=== PATIENT | male | born 1945 | race Asian ===

== ENCOUNTER 2016-12-17 07:56 | Outpatient (CLI) | payer OTHER ==
[2016-12-17 13:20] LABS: BASOPHILS % (AUTO) 0.5 %; EOSINOPHILS # (AUTO) 0.4 10^3/uL (0.0-0.7); EOSINOPHILS % (AUTO) 5.8 %; HCT - HEMATOCRIT 45.1 % (42.0-52.0); HGB - HEMOGLOBIN 14.9 g/dL (14.0-18.0); LYMPHOCYTES # (AUTO) 2.4 10^3/uL (1.5-3.5); LYMPHOCYTES % (AUTO) 31.5 %; MEAN CORPUSCULAR HEMOGLOBIN 30.6 pg (27.0-31.0); MEAN CORPUSCULAR HGB CONC 33.2 g/dL (32.0-36.0); MEAN CORPUSCULAR VOLUME 92.3 fL (80.0-94.0); MEAN PLATELET VOLUME 7.4 fL (7.4-11.4); MONOCYTES # (AUTO) 0.6 10^3/uL (0.0-1.0); MONOCYTES % (AUTO) 7.5 %; NEUTROPHILS # (AUTO) 4.1 10^3/uL (1.5-6.6); NEUTROPHILS % (AUTO) 54.7 %; RED BLOOD COUNT 4.88 10^6/uL (4.70-6.10); RED CELL DISTRIBUTION WIDTH 13.6 % (12.0-15.0); UNCORRECTED WHITE BLOOD COUNT 7.5 x10^3/uL; WHITE BLOOD COUNT 7.5 x10^3/uL (4.8-10.8)
[2016-12-17 14:16] LABS: ALBUMIN/GLOBULIN RATIO 1.2 (1.0-2.2); BILIRUBIN,TOTAL 0.6 mg/dL (0.2-1.0); BUN - BLOOD UREA NITROGEN 17 mg/dL (6-20); CALCIUM 9.1 mg/dL (8.5-10.3); CARBON DIOXIDE - CO2 25 mmol/L (21-32); CHLORIDE 99 mmol/L (101-111); CHOL/HDL RATIO 3.7 (<5.0); CHOLESTEROL 227 mg/dL; CREATININE 0.8 mg/dL (0.6-1.2); GFR - MDRD 96 (>89); GLUCOSE 104 mg/dL (70-100); HDL CHOLESTEROL 61 mg/dL; LDL/HDL RATIO 2.5 (<3.6); POTASSIUM 3.9 mmol/L (3.5-5.0); SODIUM 133 mmol/L (135-145); TOTAL PROTEIN 7.6 g/dL (6.7-8.2); TRIGLYCERIDES 63 mg/dL; VLDL CHOLESTEROL 13 mg/dL
[2016-12-17 14:22] LABS: HEMOGLOBIN A1C 0.61 g/dL
== END 2016-12-17 07:57 | disposition home or self-care (01) ==
LOC: LAB.WCP 07:56
PROVIDERS: ATTEND Family Medicine
DX: E78.5 Hyperlipidemia, unspecified (principal); I10 Essential (primary) hypertension; R73.01 Impaired fasting glucose; Z12.5 Encounter for screening for malignant neoplasm of prostate; I48.0 Paroxysmal atrial fibrillation; F41.9 Anxiety disorder, unspecified
CPT/HCPCS: 36415; 80053; 80061; 83036; 84153; 84443; 85025

== ENCOUNTER 2021-08-31 14:19 | Outpatient (CLI) | payer OTHER ==
--- NOTE | 2021-08-31 15:58 | XRAY Report ---
PROCEDURE: Shoulder 2 View RT INDICATIONS: Pain in right shoulder TECHNIQUE: 2 views of the shoulder were acquired. COMPARISON: None. FINDINGS: Bones: No fractures or dislocations. No suspicious bony lesions. Visualized ribs appear intact. Soft tissues: No suspicious soft tissue calcifications. Right lung apex is clear IMPRESSION: No fracture or dislocation Reviewed by: Kishan Torres MD on 08/31/2021 2:57 PM [facility] Approved by: Kishan Torres MD on 08/31/2021 2:57 PM [facility] Station ID: [id number]
== END 2021-08-31 14:20 | disposition home or self-care (01) ==
LOC: DI.N 14:19
PROVIDERS: ATTEND Family Medicine
DX: M25.511 Pain in right shoulder (principal)

== ENCOUNTER 2021-09-30 20:04 | Emergency (ER) | payer OTHER ==
[2021-09-30] MEDS ORDERED: TETANUS/DIPHTHERIA/PERTUSSIS 0.5 ML SYRINGE IM ONE (20:29)
[2021-09-30] MEDS ORDERED: TRANEXAMIC ACID 1,000 MG/10 ML VIAL NAS STA (20:38)
[2021-09-30] MEDS ORDERED: LIDOCAINE 1%-EPI 1:100000 20 ML MDV SUBQ STA (20:51)
--- NOTE | 2021-09-30 20:51 | ED Physician Documentation ---
History of Present Illness - Stated complaint Stated Complaint: R LOWER LEG WOUND - Chief complaint Chief Complaint: Ext Problem - Additonal information Additional information: 76-year-old male presents emergency department for evaluation of right lower leg varicosity bleeding. He has extensive varicose veins on both his legs. He had just gotten out of the shower felt an itch and scratched his leg when he looked down he noticed that he had blood squirting out of the leg. He became concerned wrapped a towel around his leg and thus came to the ER. No history of similar in the past. He is not anticoagulated. No chest pain shortness of air lapse in consciousness Review of Systems Constitutional: denies: Fever, Chills Throat: reports: Reviewed and negative Cardiac: reports: Reviewed and negative Respiratory: reports: Reviewed and negative GI: reports: Reviewed and negative : reports: Reviewed and negative Skin: reports: Other (Bleeding varicose vein right lower anterior calf) PD PAST MEDICAL HISTORY - Past Medical History Cardiovascular: Hypertension, High cholesterol Respiratory: Asthma - Past Surgical History Past Surgical History: No - Present Medications Home Medications: Ambulatory Orders Medication Instructions Recorded Confirmed Fluticasone 44 Mcg [Flovent] 2 puffs INH DAILY 07/11/13 09/30/21 Losartan [Cozaar] 50 mg PO DAILY 07/11/13 09/30/21 Meloxicam [Mobic] 1 tablet PO DAILY PRN 09/30/21 09/30/21 - Allergies Allergies/Adverse Reactions: Allergies Allergy/AdvReac Type Severity Reaction Status Date / Time acetaminophen [From Tylenol] Allergy Intermediate Hives Verified 09/30/21 20:14 guaifenesin [From Robitussin] AdvReac Intermediate Emesis Verified 09/30/21 20:14 - Social History Does the pt smoke?: No Smoking Status: Never smoker Does the pt drink ETOH?: No Does the pt have substance abuse?: No - Immunizations Immunizations are current?: Yes PD ED PE EXPANDED - General General: Alert, No acute distress, Well developed/nourished - Extremities Extremities: Right leg (Superficial small bleeding varicose vein right lower anterior calf. Bleeding is controlled with pressure but with release of pressure it continues to slowly bleed.) Results - Vitals Vitals: Vital Signs - 24 hr 09/30/21 20:06 Temperature 36.8 C Heart Rate 106 H Respiratory 18 Rate Blood Pressure 177/72 H O2 Saturation 95 Oxygen O2 Source Room air Procedures - General procedure General procedure: bleeding right lower leg varicose vein: 3 mL of Tranxene make acid was injected around the bleeding varicose vein. Firm pressure was held for 5 minutes on reevaluation no further bleeding was noted. Pressure was then fully released and wound continued to be observed for about 10 minutes with no further findings of bleeding. Bacitracin was applied as well as a nonstick gauze and small amount of Coban. PD MEDICAL DECISION MAKING - ED course Complexity details: reviewed results, re-evaluated patient, d/w patient ED course: 76-year-old male presents emergency department for evaluation of a bleeding varicose vein on his right lower anterior leg. He he initially reported a pulsatile flow at home but by the time he arrived to the emergency department after compression he had a persistent slow ooze. I was able to achieve control of the bleed by injecting approximately 3 cc of Tranxene make acid around the varicose vein. We held firm pressure for 5 minutes and on reevaluation without any pressure there was no further bleeding. Wound was continued to be observed for 5 further minutes without further bleeding. Bacitracin and a gentle compression bandage was applied. Routine care and emergent return precautions otherwise discussed Tetanus was updated today in the ER Departure - Departure Disposition: 01 Home, Self Care Clinical Impression: Bleeding from varicose vein Condition: Stable Record reviewed to determine appropriate education?: Yes Comments: Kai mata are seen today in the emergency department for bleeding from a varicose vein in your right lower leg. We were able to get control the bleeding by injecting a medication called Tranxemic Acid around the bleeding varicose vein. We held gentle pressure for about 5 minutes and reevaluated the wound. At that time no further bleeding was seen. We continue to observe the leg without any pressure for another 10 minutes and again no further bleeding was noted. We placed antibiotic ointment and a nonstick gauze over the wound. In general I expect that this will not rebleed. Avoid scratching or harshly rubbing the leg over the next 48 to 72 hours. If you do have a recurrence of the bleed please return immediately to the ER
[2021-09-30] MEDS ORDERED: BACITRACIN ZINC OINT 1 PACKET TOP STA (21:07)
[2021-09-30 21:27] VITALS: BP 136/68
== END 2021-09-30 21:26 | disposition home or self-care (01) ==
LOC: ED 20:04
DX: I83.891 Varicose veins of right lower extremity with other complications (principal); I10 Essential (primary) hypertension
CPT/HCPCS: 90715; 99282; 99283; A9270

== ENCOUNTER 2023-07-22 18:00 | Outpatient (CLI) | payer OTHER | END 2023-07-22 23:59 | disposition left against medical advice (07) | LOC: EMS 18:00 | DX: R07.89 Other chest pain (principal) ==